=== PATIENT | female | born 1965 | race Caucasian/White ===

== ENCOUNTER 2019-03-13 19:47 | Observation (INO) ==
[2019-03-13 20:59] LABS: Basophils % (auto) 1.1 %; Eosinophils # (auto) 0.09 K/uL (0-0.5); Hematocrit (blood only) 35.9 % (37-47); Hemoglobin 12.5 g/dL (12.0-16.0); Immature Granulocytes # (auto) 0.02 K/uL (0.00-0.02); Immature Granulocytes % (auto) 0.2 %; Lymphocytes % (auto) 43.9 %; Mean Corpuscular Hemoglobin 31.3 pg (25-34); Mean Corpuscular Hgb Conc 34.8 g/dL (32-36); Mean Corpuscular Volume 89.8 fL (80-100); Mean Platelet Volume 11.5 fL (7.4-10.4); Monocytes # (auto) 0.69 K/uL (0.11-0.59); Monocytes % (auto) 7.6 %; Neutrophils # (auto) 4.22 K/uL (1.4-6.5); Neutrophils % (auto) 46.2 %; Platelet Count 208 K/uL (130-400); RDW Coefficient of Variation 12.8 % (11.5-14.5); RDW Standard Deviation 41.9 fL (36.4-46.3); White Blood Count 9.12 K/uL (4.8-10.8)
[2019-03-13 21:04] LABS: Prothrombin Time 10.5 Seconds (9.0-12.0)
[2019-03-13 21:07] LABS: Alanine Aminotransferase 27 U/L (12-78); Albumin Level 3.8 gm/dl (3.4-5.0); Aspartate Aminotransferase 23 U/L (15-37); BUN Creatinine Ratio 12.1 (10-20); Blood Urea Nitrogen 10 mg/dl (7-18); Calcium 8.6 mg/dl (8.5-10.1); Carbon Dioxide 27 mmol/L (21-32); Chloride 110 mmol/L (98-107); Creatinine Clr Calc Pharmacy 64.8 ml/min; Est GFR (African American) 93.3; Est GFR (Non-African American) 80.5; Glucose 112 mg/dl (70-99); Lipase 226 U/L (73-393); Magnesium 2.2 mg/dl (1.8-2.4); Potassium 3.7 mmol/L (3.5-5.1); Sodium 143 mmol/L (136-145)
[2019-03-13 21:18] LABS: Albumin Globulin Ratio 1.1 (0.9-2); Alkaline Phosphatase 69 U/L (45-117); Bilirubin,Total 0.7 mg/dl (0.2-1); Globulin 3.5 gm/dl (2.5-4.0); NT Pro B Type Natriuretic Pept 223 pg/ml (0-900); Phosphorus 2.3 mg/dl (2.5-4.9); Total Protein 7.3 gm/dl (6.4-8.2); Troponin I < 0.015 ng/ml (0-0.045)
[2019-03-13 22:00] LABS: Appearance Urine Clear (Clear); Bacteria Urine Automated Negative (Negative); Bilirubin Urine Negative (Negative); Blood Urine Negative (Negative); Cast Urine Automated 0 /lpf (0-5); Color Urine Yellow; Glucose Urine UA Negative (Negative); Ketones Urine Negative (Negative); Leukocyte Esterase Urine Trace (Negative); Nitrite Urine Negative (Negative); Protein Urine Negative (Negative); RBC Urine Automated 0-4 /hpf (0-4); Specific Gravity Urine 1.021 (1.000-1.030); Urobilinogen Urine Negative (Negative); pH Urine 8.5 (4.5-7.5)
--- NOTE | 2019-03-14 02:09 | History & Physical Report ---
Date of Service March 14, 2019 Assessment & Plan (1) Heart palpitations: 53yo F PMH afib, pacemaker placement, mitral/tricuspid valve repair, crohn's disease, who presented twice on 03/13 for symptomatic palpitations. Palpitations/chest tightness/JOHNSON -Will admit under observation for chest pain rule out -Patient decided to leave twice due to being frustrated about observation status and subsequent cost, but when trying to leave became symptomatic with hyperv entilation, and decided to stay -Trend troponin -Monitor on telemetry -Replace electrolytes prn -Consult cardiology, appreciate recs -Echo ordered -Ativan ordered prn, but patient to time of note has refused. -Continue ASA and crestor Crohn's -Well controlled at present -Receives remicade [id number] Dispo:tele, obs Code: Full DVTP: lovenox (2) Chest pain, exertional: (3) Breath, shortness: (4) Crohn's disease: History of Present Illness Chief Complaint: Palpitations, dizziness, chest tightness Primary Care Provider: NO PCP Damari is a pleasant 53yo F PMH Crohns, afib, pacemaker in situ, and mitral/tricuspid valve repair who presents to the ER for continued symptoms of palpitations, dizziness, chest tightness, and dyspnea on ambulation. Patient notes her symptoms started on 03/13 when she was walking into the football game. She presented to EMS at the [facility] where she was told her heart tracing indicated she was going in and out of atrial flutter. The patient notes because of her extensive history of arrhythmias, she would present to the ER. Workup was grossly negative at that time, with delta troponin negative and symptoms self re solving. She was noted at that time to have a mildly elevated D-dimer of [address] for PE was negative. EKG at that time revealed "Atrial-paced rhythm with frequent AV dual-paced complexes and with occasional sinus and non-sinus beats and Premature supraventricular complexes". She was offered inpatient observation and ativan at that time but declined both and stated she would follow up with her recreation therapy aide at [facility]. 8 hours after that visit, the patient returned with worsening symptoms of palpitations, dizziness, JOHNSON and new associated chest tightness on minimal exertion of going up 3 stairs, and so returned to the ER. She was noted to be breathing into a paper bag in triage. She again notes her symptoms resolved with rest. Labs grossly negative on this visit as well, including a negative troponin, normal TSH. She is a never smoker, exercises regularly. She will be admitted for chest pain rule out/arrhythmia. Regarding her cardiac history: Patient has a h/o afib and has had 3 ablations (2006, 2017, 2018--the latest for atrial tachy/SVT). 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 It is a Biotronik pacemaker with medtronic leads; she states that it was last interrogated in November 2018 and was told one lead was firing 12%, and the 2nd firing >40%. Patient also has a h/o mitral valve bovine repair and tricuspid stitch, which failed, and has resulted in a tricuspid annuloplasty and porcine mitral valve replacing bovine valve in 2017. She offers the following phone numbers: [employer] PM for interrogation: [phone] PM monitoring at [facility]: [phone] Dr. Mcfarland, her EP: [phone] Dr. Lucero, her cardiothoracic surgeon: [phone] Dr. Saleem, her recreation therapy aide: [phone] Allergies Allergy/AdvReac Type Severity Reaction Status Date / Time hydromorphone [From Dilaudid] Allergy Vomiting Unverified 03/13/19 20:32 morphine Allergy Vomiting Unverified 03/13/19 20:32 Home Medications Home Medications Medication Instructions Recorded Confirmed Type aspirin [Aspirin Low Dose] 81 mg PO DAILY 03/13/19 03/13/19 History rosuvastatin [Crestor] 5 mg PO HS 03/13/19 03/13/19 History Past Med/Surg History Medical History Chest pain (Acute) Heart palpitations (Acute) Afib Surgical History History of cardiac radiofrequency ablation History of open heart surgery Family History Other No pertinent family history Social History Preferred Language: Ukrainian Beliefs That Will Affect Care: Yarsani Yarsani Beliefs: Mosque Current Living Situation: Spouse Other Information That Helps Us Care for You: No Feels Safe at Home: Yes Safety Concerns: Feels Safe At This Time Smoking Status: Never smoker Hx Alcohol Use: No Hx Substance Use: No Review of Systems Review of Systems: All systems reviewed & are unremarkable except as noted in HPI & below Cardiovascular: + chest pain with activity, + dyspnea on exertion and + palpitations Neurologic: + dizziness (on exertion) Physical Exam Physical Exam: General: Well-appearing female, in no significant distress. HEENT: No scleral icterus, PERRLA, neck supple. Atraumatic. Cardiovascular: Regular rate and rhythm, no extra sounds. Pulmonary: Clear to auscultation bilaterally, normal work of breathing. Abdomen: Soft, nontender, nondistended, positive bowel sounds. Musculoskeletal: Atraumatic, no peripheral edema. Neurologic: Patient awake alert and oriented x 3, full strength in all 4 extremities. Skin: Warm, dry, no rashes Results & Data Vital Signs (Past 12 Hours) Vital Signs Temp Pulse Pulse Resp BP BP Pulse Ox 03/14/19 00:38 69 22 103/48 L 96 03/13/19 22:49 72 19 116/54 L 98 03/13/19 21:12 68 20 123/58 L 97 03/13/19 21:03 97 03/13/19 19:59 98.2 F 76 43 H 151/72 H 100 Laboratory Results 03/13/19 03/13/19 03/13/19 Range/Units 21:45 20:29 20:29 WBC (4.8-10.8) K/uL RBC (4.2-5.4) M/uL Hgb (12.0-16.0) g/dL Hct (37-47) % MCV (80-100) fL MCH (25-34) pg MCHC (32-36) g/dL RDW Std Deviation (36.4-46.3) fL RDW Coeff of Pan (11.5-14.5) % Plt Count (130-400) K/uL MPV (7.4-10.4) fL Immature Gran % (Auto) % Neut % (Auto) % Lymph % (Auto) % Grayson % (Auto) % Eos % (Auto) % Baso % (Auto) % Immature Gran # (Auto) (0.00-0.02) K/uL Neut # (Auto) (1.4-6.5) K/uL Lymph # (Auto) (1.2-3.4) K/uL Grayson # (Auto) (0.11-0.59) K/uL Eos # (Auto) (0-0.5) K/uL Baso # (Auto) (0-0.2) K/uL PT 10.5 (9.0-12.0) Seconds INR 1.0 (0.9-1.1) Sodium 143 (136-145) mmol/L Potassium 3.7 (3.5-5.1) mmol/L Chloride 110 H (98-107) mmol/L Carbon Dioxide 27 (21-32) mmol/L Anion Gap 6.0 (3-11) BUN 10 (7-18) mg/dl Creatinine 0.83 (0.6-1.2) mg/dl Est Cr Clr Drug Dosing 64.8 ml/min Est GFR ( Amer) 93.3 Est GFR (Non-Af Amer) 80.5 BUN/Creatinine Ratio 12.1 (10-20) Glucose 112 H (70-99) mg/dl Calcium 8.6 (8.5-10.1) mg/dl Phosphorus 2.3 L (2.5-4.9) mg/dl Magnesium 2.2 (1.8-2.4) mg/dl Total Bilirubin 0.7 (0.2-1) mg/dl AST 23 (15-37) U/L ALT 27 (12-78) U/L Alkaline Phosphatase 69 (45-117) U/L Troponin I < 0.015 (0-0.045) ng/ml NT-Pro-B Natriuret Pep 223 (0-900) pg/ml Total Protein 7.3 (6.4-8.2) gm/dl Albumin 3.8 (3.4-5.0) gm/dl Globulin 3.5 (2.5-4.0) gm/dl Albumin/Globulin Ratio 1.1 (0.9-2) Lipase 226 (73-393) U/L TSH 1.370 (0.300-4.500) uIu/ml Urine Color Yellow Urine Appearance Clear (Clear) Urine pH 8.5 H (4.5-7.5) Ur Specific Lynn 1.021 (1.000-1.030) Urine Protein Negative (Negative) Urine Glucose (UA) Negative (Negative) Urine Ketones Negative (Negative) Urine Blood Negative (Negative) Urine Nitrite Negative (Negative) Urine Bilirubin Negative (Negative) Urine Urobilinogen Negative (Negative) Ur Leukocyte Esterase Trace H (Negative) Urine WBC (Auto) 1-5 (0-5) /hpf Urine RBC (Auto) 0-4 (0-4) /hpf U Hyaline Cast (Auto) 0 (0-5) /lpf U Epithel Cells (Auto) 5-10 H (0-5) /lpf Urine Bacteria (Auto) Negative (Negative) 03/13/19 Range/Units 20:29 WBC 9.12 (4.8-10.8) K/uL RBC 4.00 L (4.2-5.4) M/uL Hgb 12.5 (12.0-16.0) g/dL Hct 35.9 L (37-47) % MCV 89.8 (80-100) fL MCH 31.3 (25-34) pg MCHC 34.8 (32-36) g/dL RDW Std Deviation 41.9 (36.4-46.3) fL RDW Coeff of Pan 12.8 (11.5-14.5) % Plt Count 208 (130-400) K/uL MPV 11.5 H (7.4-10.4) fL Immature Gran % (Auto) 0.2 % Neut % (Auto) 46.2 % Lymph % (Auto) 43.9 % Grayson % (Auto) 7.6 % Eos % (Auto) 1.0 % Baso % (Auto) 1.1 % Immature Gran # (Auto) 0.02 (0.00-0.02) K/uL Neut # (Auto) 4.22 (1.4-6.5) K/uL Lymph # (Auto) 4.00 H (1.2-3.4) K/uL Grayson # (Auto) 0.69 H (0.11-0.59) K/uL Eos # (Auto) 0.09 (0-0.5) K/uL Baso # (Auto) 0.10 (0-0.2) K/uL PT (9.0-12.0) Seconds INR (0.9-1.1) Sodium (136-145) mmol/L Potassium (3.5-5.1) mmol/L Chloride (98-107) mmol/L Carbon Dioxide (21-32) mmol/L Anion Gap (3-11) BUN (7-18) mg/dl Creatinine (0.6-1.2) mg/dl Est Cr Clr Drug Dosing ml/min Est GFR ( Amer) Est GFR (Non-Af Amer) BUN/Creatinine Ratio (10-20) Glucose (70-99) mg/dl Calcium (8.5-10.1) mg/dl Phosphorus (2.5-4.9) mg/dl Magnesium (1.8-2.4) mg/dl Total Bilirubin (0.2-1) mg/dl AST (15-37) U/L ALT (12-78) U/L Alkaline Phosphatase (45-117) U/L Troponin I (0-0.045) ng/ml NT-Pro-B Natriuret Pep (0-900) pg/ml Total Protein (6.4-8.2) gm/dl Albumin (3.4-5.0) gm/dl Globulin (2.5-4.0) gm/dl Albumin/Globulin Ratio (0.9-2) Lipase (73-393) U/L TSH (0.300-4.500) uIu/ml Urine Color Urine Appearance (Clear) Urine pH (4.5-7.5) Ur Specific Lynn (1.000-1.030) Urine Protein (Negative) Urine Glucose (UA) (Negative) Urine Ketones (Negative) Urine Blood (Negative) Urine Nitrite (Negative) Urine Bilirubin (Negative) Urine Urobilinogen (Negative) Ur Leukocyte Esterase (Negative) Urine WBC (Auto) (0-5) /hpf Urine RBC (Auto) (0-4) /hpf U Hyaline Cast (Auto) (0-5) /lpf U Epithel Cells (Auto) (0-5) /lpf Urine Bacteria (Auto) (Negative) Code Status & VTE Plan Code Status Full VTE Prophylaxis Plan VTE Prophylaxis will be ordered: Yes Supervising Physician Co-Signing Physician Notes Patient was seen and examined by me personally. I reviewed the chart, the orders and discussed the case in detail with Dr. Cathy Barry MD. I read this H&P and agree with its contents to entirety. PG Care Time/CCT Total # of Minutes Spent Total Time Spent with Patient: Total time spent is greater than 50% in coordination of care (as documented) at patient's floor/unit and/or counseling patient: Resident Activity Tracking Resident Involvement: Resident Care Provided Care Provided: Adult Hospital Medicine
[2019-03-14] MEDS ORDERED: ONDANSETRON INJ 2 MG/ML 2 ML VIAL IV PRN (03:01)
[2019-03-14] MEDS ORDERED: POTASSIUM PHOS 3 MMOL/1 ML INFUSION IV STA (03:01)
[2019-03-14] MEDS ORDERED: POLYETHYLENE (MIRALAX) 17 GM PACK PO PRN (03:01)
[2019-03-14] MEDS ORDERED: MAGNESIUM HYDROXIDE SUSP 30 ML UDC PO PRN (03:01)
[2019-03-14] MEDS ORDERED: NITROGLYCERIN SL 0.4 MG/TAB TAB SL PRN (03:01)
[2019-03-14] MEDS ORDERED: ALUMINUM/MAGNESIUM SUSP 30 ML UDC PO PRN (03:01)
[2019-03-14] MEDS ORDERED: ACETAMINOPHEN 325 MG TAB PO PRN (03:01)
[2019-03-14] MEDS ORDERED: LORazepam 0.25 MG/0.5 ML VIAL IV PRN (03:20)
--- NOTE | 2019-03-14 03:29 | Emergency Department Note ---
Entered by Krys Mojica acting as a scribe for Pankaj Devine MD History of Present Illness General Chief complaint: Cardiac Assessment Stated complaint: HEART PALPITATIONS Time Seen by Provider: 03/13/19 20:16 Source: patient History of Present Illness Onset (ago): minute(s) (prior to arrival) Location: chest Pain Consistency: + now resolved Quality: + other (shortness of breath) Associated symptoms: + chest pain and + other (heart palpitations, increased he art rate, shallow heart beats ) The patient is a 53 year old female who presents to the Emergency Room with complaints of shortness of breath beginning just prior to arrival when she was walking down the stairs in a restaurant. The patient reports heart palpitations, an increased heart rate, and shallow heart beats. She also notes some chest pain. She states the symptoms are now resolved, but have been coming and going in waves. The patient reports she was in the ER earlier today, approximately 8 hours ago, for a heart flutter and was given baby aspirin. She states that she was walking towards the stadium when she experienced shortness of breath for the first time today. Approximately 45 minutes later, she felt dizzy and thought she was going to blackout in the stadium bathroom. She notes the paramedics told her she had a heart flutter and advised her to come to the hospital despite her not wanting to come. The patient notes that she has felt fine the past couple of months. She states that she has been eating and drinking normally. She denies any alcohol use. The patient reports 3 open heart surgeries. She notes she had a mitral valve and bicuspid valve repair performed 14 years ago. 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 She notes the valve was replaced with a bovine valve one year after the initial surgery. She reports the bovine valve was then replaced with a porcine valve one year ago. The patient also states she has a history of three heart ablations. She notes she had a pacemaker placed six months ago due to her heart pausing after the third ablation was performed. She states she currently takes baby aspirin for her heart problems. The patient denies having any stents placed. The patient denies taking a water pill. She also denies a history of anxiety. Home Medications Home Medications Medication Instructions Recorded Confirmed Type aspirin [Aspirin Low Dose] 81 mg PO DAILY 03/13/19 03/13/19 History rosuvastatin [Crestor] 5 mg PO HS 03/13/19 03/13/19 History Allergies Allergy/AdvReac Type Severity Reaction Status Date / Time hydromorphone [From Dilaudid] Allergy Vomiting Unverified 03/13/19 20:32 morphine Allergy Vomiting Unverified 03/13/19 20:32 Past Med/Surg History Medical History Chest pain (Acute) Heart palpitations (Acute) Afib Surgical History History of cardiac radiofrequency ablation History of open heart surgery Family History Other No pertinent family history Social History Preferred Language: German Beliefs That Will Affect Care: Yarsani Yarsani Beliefs: Religion Current Living Situation: Spouse Other Information That Helps Us Care for You: No Feels Safe at Home: Yes Safety Concerns: Feels Safe At This Time Smoking Status: Never smoker Hx Alcohol Use: No Hx Substance Use: No Review of Systems See HPI for pertinent positives & negatives. and A total of 10 systems reviewed and were otherwise negative Physical Exam Vital Signs Vital Signs - 24 hr 03/13/19 19:59 03/13/19 21:03 03/13/19 21:12 Temperature 36.8 C Temperature Source Oral Sepsis Recent Fever Within 48 Hours No Sepsis New/Unexplained Change in Mental Status No Sepsis Action Taken by Nursing No Action Required Pulse Rate 76 Pulse Rate [Right Finger] 68 Pulse Rhythm [Right Finger] Regular Pulse Strength [Right Finger] Normal Respiratory Rate 43 H 20 Respiratory Effort / Characteristics Non-Labored Spontaneous Respiratory Depth Deep Normal Blood Pressure 151/72 H Blood Pressure [Right Arm] 123/58 L Blood Pressure Mean 98 Blood Pressure Mean [Right Arm] 79 Blood Pressure Position Sitting Pulse Oximetry 100 97 97 Oxygen Delivery Method Room Air Room Air Room Air 03/13/19 22:49 03/14/19 00:38 Temperature Temperature Source Sepsis Recent Fever Within 48 Hours Sepsis New/Unexplained Change in Mental Status Sepsis Action Taken by Nursing Pulse Rate Pulse Rate [Right Finger] 72 69 Pulse Rhythm [Right Finger] Pulse Strength [Right Finger] Respiratory Rate 19 22 Respiratory Effort / Characteristics Respiratory Depth Blood Pressure Blood Pressure [Right Arm] 116/54 L 103/48 L Blood Pressure Mean Blood Pressure Mean [Right Arm] 74 66 Blood Pressure Position Pulse Oximetry 98 96 Oxygen Delivery Method Room Air Room Air GENERAL: Awake, alert, anxious-appearing but otherwise well appearing, in no distress HENT: Normocephalic, atraumatic. Oropharynx with dry mucous membranes and otherwise unremarkable. EYES: Normal conjunctiva. Sclera non-icteric. EOMI. No nystamgus. PEARRL. NECK: Supple. No nuchal rigidity. FROM. No JVD. RESPIRATORY: CTAB. CARDIAC: Regular rate, normal rhythm. Extremities warm and well perfused. Pulses equal. ABDOMEN: Soft, non-distended. No tenderness to palpation. No rebound or guarding. No masses. RECTAL: Deferred. MUSCULOSKELETAL: Chest examination reveals no tenderness. The back is symmetrical on inspection without obvious abnormality. There is no CVA tenderness to palpation. No joint edema. LOWER EXTREMITIES: Calves are equal size bilaterally and non-tender. No edema. No discoloration. NEURO: Normal sensorium. No sensory or motor deficits noted. SKIN: No rash or jaundice noted. Course 2034: Past medical records reviewed. The patient was evaluated in room A12. A complete history and physical exam was performed. 0042: Upon reevaluation, I discussed findings and results with the patient. She verbalized agreement of the treatment plan. I spoke with Dr. Soto of the [facility] Hospitalist Service. The patient will be evaluated for further management and care. Administered Medications Potassium Phosphate 15 mmol/ (Sodium Chloride) 255 mls @ 100 mls/hr IV ONE ONE Stop: 03/14/19 06:02 Last Admin: 03/14/19 03:39 Dose: 100 mls/hr Documented by: [id number] Nitroglycerin (Nitro-Bid 2%) 1 inch EXT Q6H LIVIER Stop: 04/13/19 03:59 Last Admin: 03/14/19 03:39 Dose: 1 inch Documented by: [id number] Medical Decision Making Differential Diagnosis Differential diagnoses includes but is not limited to pneumonia, bronchitis, COPD/Asthma exacerbation, pneumothorax, pulmonary embolism, congestive heart failure, acute coronary syndrome Medical Records Attestation: I reviewed the patient's medical records. Home Medications Current Medication List: was personally reviewed by me Laboratory Data Attestation: I reviewed the patient's lab results. Result diagrams: 03/13/19 20:29 03/13/19 20:29 Lab Results 03/13/19 03/13/19 03/13/19 Range/Units 20:29 20:29 20:29 WBC 9.12 (4.8-10.8) K/uL RBC 4.00 L (4.2-5.4) M/uL Hgb 12.5 (12.0-16.0) g/dL Hct 35.9 L (37-47) % MCV 89.8 (80-100) fL MCH 31.3 (25-34) pg MCHC 34.8 (32-36) g/dL RDW Std Deviation 41.9 (36.4-46.3) fL RDW Coeff of Pan 12.8 (11.5-14.5) % Plt Count 208 (130-400) K/uL MPV 11.5 H (7.4-10.4) fL Immature Gran % (Auto) 0.2 % Neut % (Auto) 46.2 % Lymph % (Auto) 43.9 % Howard % (Auto) 7.6 % Eos % (Auto) 1.0 % Baso % (Auto) 1.1 % Immature Gran # (Auto) 0.02 (0.00-0.02) K/uL Neut # (Auto) 4.22 (1.4-6.5) K/uL Lymph # (Auto) 4.00 H (1.2-3.4) K/uL Howard # (Auto) 0.69 H (0.11-0.59) K/uL Eos # (Auto) 0.09 (0-0.5) K/uL Baso # (Auto) 0.10 (0-0.2) K/uL PT 10.5 (9.0-12.0) Seconds INR 1.0 (0.9-1.1) Sodium 143 (136-145) mmol/L Potassium 3.7 (3.5-5.1) mmol/L Chloride 110 H (98-107) mmol/L Carbon Dioxide 27 (21-32) mmol/L Anion Gap 6.0 (3-11) BUN 10 (7-18) mg/dl Creatinine 0.83 (0.6-1.2) mg/dl Est Cr Clr Drug Dosing 64.8 ml/min Est GFR ( Amer) 93.3 Est GFR (Non-Af Amer) 80.5 BUN/Creatinine Ratio 12.1 (10-20) Glucose 112 H (70-99) mg/dl Calcium 8.6 (8.5-10.1) mg/dl Phosphorus 2.3 L (2.5-4.9) mg/dl Magnesium 2.2 (1.8-2.4) mg/dl Total Bilirubin 0.7 (0.2-1) mg/dl AST 23 (15-37) U/L ALT 27 (12-78) U/L Alkaline Phosphatase 69 (45-117) U/L Troponin I < 0.015 (0-0.045) ng/ml NT-Pro-B Natriuret Pep 223 (0-900) pg/ml Total Protein 7.3 (6.4-8.2) gm/dl Albumin 3.8 (3.4-5.0) gm/dl Globulin 3.5 (2.5-4.0) gm/dl Albumin/Globulin Ratio 1.1 (0.9-2) Lipase 226 (73-393) U/L TSH 1.370 (0.300-4.500) uIu/ml Urine Color Urine Appearance (Clear) Urine pH (4.5-7.5) Ur Specific [place] (1.000-1.030) Urine Protein (Negative) Urine Glucose (UA) (Negative) Urine Ketones (Negative) Urine Blood (Negative) Urine Nitrite (Negative) Urine Bilirubin (Negative) Urine Urobilinogen (Negative) Ur Leukocyte Esterase (Negative) Urine WBC (Auto) (0-5) /hpf Urine RBC (Auto) (0-4) /hpf U Hyaline Cast (Auto) (0-5) /lpf U Epithel Cells (Auto) (0-5) /lpf Urine Bacteria (Auto) (Negative) 03/13/19 Range/Units 21:45 WBC (4.8-10.8) K/uL RBC (4.2-5.4) M/uL Hgb (12.0-16.0) g/dL Hct (37-47) % MCV (80-100) fL MCH (25-34) pg MCHC (32-36) g/dL RDW Std Deviation (36.4-46.3) fL RDW Coeff of Pan (11.5-14.5) % Plt Count (130-400) K/uL MPV (7.4-10.4) fL Immature Gran % (Auto) % Neut % (Auto) % Lymph % (Auto) % Howard % (Auto) % Eos % (Auto) % Baso % (Auto) % Immature Gran # (Auto) (0.00-0.02) K/uL Neut # (Auto) (1.4-6.5) K/uL Lymph # (Auto) (1.2-3.4) K/uL Howard # (Auto) (0.11-0.59) K/uL Eos # (Auto) (0-0.5) K/uL Baso # (Auto) (0-0.2) K/uL PT (9.0-12.0) Seconds INR (0.9-1.1) Sodium (136-145) mmol/L Potassium (3.5-5.1) mmol/L Chloride (98-107) mmol/L Carbon Dioxide (21-32) mmol/L Anion Gap (3-11) BUN (7-18) mg/dl Creatinine (0.6-1.2) mg/dl Est Cr Clr Drug Dosing ml/min Est GFR ( Amer) Est GFR (Non-Af Amer) BUN/Creatinine Ratio (10-20) Glucose (70-99) mg/dl Calcium (8.5-10.1) mg/dl Phosphorus (2.5-4.9) mg/dl Magnesium (1.8-2.4) mg/dl Total Bilirubin (0.2-1) mg/dl AST (15-37) U/L ALT (12-78) U/L Alkaline Phosphatase (45-117) U/L Troponin I (0-0.045) ng/ml NT-Pro-B Natriuret Pep (0-900) pg/ml Total Protein (6.4-8.2) gm/dl Albumin (3.4-5.0) gm/dl Globulin (2.5-4.0) gm/dl Albumin/Globulin Ratio (0.9-2) Lipase (73-393) U/L TSH (0.300-4.500) uIu/ml Urine Color Yellow Urine Appearance Clear (Clear) Urine pH 8.5 H (4.5-7.5) Ur Specific [place] 1.021 (1.000-1.030) Urine Protein Negative (Negative) Urine Glucose (UA) Negative (Negative) Urine Ketones Negative (Negative) Urine Blood Negative (Negative) Urine Nitrite Negative (Negative) Urine Bilirubin Negative (Negative) Urine Urobilinogen Negative (Negative) Ur Leukocyte Esterase Trace H (Negative) Urine WBC (Auto) 1-5 (0-5) /hpf Urine RBC (Auto) 0-4 (0-4) /hpf U Hyaline Cast (Auto) 0 (0-5) /lpf U Epithel Cells (Auto) 5-10 H (0-5) /lpf Urine Bacteria (Auto) Negative (Negative) Imaging Data Radiologist's Impression: Radiology results as stated below per my review and th e radiologist's interpretation: Chest x-ray: Comparison 03/13/2019 at 12:46 PM. Findings: Left subclavian pacer leads to the right atrium and right ventricle apex. Median sternotomy wires and mediastinal surgical clips, coronary artery bypass graft rings noted. Vertex silhouette mildly enlarged as on prior exam. No focal opacity. No large effusion or pneumothorax. Osseous structures normal. Upper abdomen normal. Impression: 1. Cardiomegaly. No other convincing evidence of acute cardiopulmonary disease. ECG Data Attestation: I personally reviewed and interpreted this ECG as follows: Indication: SOB/dyspnea Rate (beats per minute): 77 Findings: + other (LVH with repolarization abnormalities) and + PAC; no ST depression, no ST elevation and no acute ischemic change Comparison ECG Date: from (1230pm today) Change: the following changes noted (paced rhythm no longer shown) Blood Pressure Blood Pressure Findings: Low blood pressure Blood Pressure Disposition: further management by hospitalist [facility] Narrative The patient is a pleasant 53-year-old woman with a past medical history of mitral valve repair and replacement with bioprosthetic valve, history of heart block status post permanent pacemaker who presents emergency department with repeat episode of exertional chest pain and shortness of breath with difficulty breathing in the setting of being seen in emergency department earlier today with reassuring work-up including negative troponin as well as a an unremarkable CTA of the chest. On arrival the patient is anxious appearing but no acute distress, afebrile with stable vital signs. Of note upon presentation to triage the patient was hyperventilating and was given a paper bag with subsequent resolution of her symptoms. The patient apparently was ordered for Ativan on a prior ED visit however she refused and ended up improving without intervention. However she reports her symptoms occurred abruptly today with exertion. She denies any prior history of anxiety or panic attacks. EKG demonstrates sinus rhythm without overt acute ischemia. Chest x-ray unremarkable for acute process. WBC, hemoglobin, platelets within normal limits. Chemistry without acidosis. Troponin negative. Electrolytes and LFTs unremarkable. BNP within normal limits. UA without evidence of infection. We did attempt repeatedly to contact [employer], the campaign consultant of the patient's pacemaker however we were unsuccessful over the course of 3+ hours. Thus given inability to exclude concerning arrhythmias or dysfunction of the patient's device given her symptoms reasonable to admit the patient for further cardiac evaluation. Case was discussed with Dr. Soto, [facility] hospitalist will evaluate the patient for admission. Impression & Plan Chest pain, exertional, Breath, shortness Discharge Plan Visit Data *Final* Discharge Date/Time: 03/14/19 02:11 Chief Complaint: Cardiac Assessment Stated Complaint: HEART PALPITATIONS ED Provider: Pankaj Devine Discharge Problem: Chest pain, exertional, Breath, shortness Patient Disposition: Admitted As Inpatient Discharge Instructions Interventions: ED Discharge Assessment Last Done: 03/14/19 02:11 The scribe's documentation has been prepared under my direction and personally reviewed by me in its entirety. I confirm that the note above accurately reflects all work, treatment, procedures, and medical decision making performed by me.
[2019-03-14] MEDS ORDERED: POTASSIUM PHOSPHATE 15 MMOL in SODIUM CHLORIDE 0.9% 250 ML IV ONE (03:30)
[2019-03-14] MEDS ORDERED: NITROGLYCERIN 2% OINTMENT 30GM TUBE EXT SCH (04:00)
[2019-03-14] MEDS ORDERED: ENOXAPARIN INJ 40 MG/0.4 ML SYR SQ SCH (06:00)
[2019-03-14 06:37] LABS: BUN Creatinine Ratio 24.2 (10-20); Blood Urea Nitrogen 17 mg/dl (7-18); Calcium 8.2 mg/dl (8.5-10.1); Carbon Dioxide 27 mmol/L (21-32); Chloride 110 mmol/L (98-107); Est GFR (African American) 115.2; Est GFR (Non-African American) 99.4; Glucose 93 mg/dl (70-99); Magnesium 2.2 mg/dl (1.8-2.4); Potassium 3.8 mmol/L (3.5-5.1); Sodium 143 mmol/L (136-145)
[2019-03-14 07:03] LABS: Phosphorus 4.8 mg/dl (2.5-4.9); Troponin I < 0.015 ng/ml (0-0.045)
[2019-03-14] MEDS ORDERED: ASPIRIN 81 MG ECTAB PO SCH (09:00)
--- NOTE | 2019-03-14 11:56 | Cardiology Consultation ---
Date of Consultation March 14, 2019 Assessment & Plan (1) Chest pain, exertional: I do not believe her chest pain was related to cardiac ischemia. She does not have a history of coronary disease and has had several evaluations previously in this regard. On the character of her symptom could suggest ischemia, the extended duration without elevation in her biomarkers also speaks against ischemia. She is accustomed to routine exercise without symptoms of chest discomfort. I think the most likely explanation of this symptom was simply her palpitations and likely rapid atrial rates. (2) Heart palpitations: Patient did have a picture of EKGs obtained by EMS. He is reported to be atrial fibrillation but were not. She has not had any sustained atrial arrhythmias on telemetry monitoring with the exception of a persistent ectopic atrial pacemaker. I did interrogate her device. No specific arrhythmia was recorded yesterday. She has had some episodes of high atrial rates recorded through her device. EGMs were available for 5 episodes which occurred over the past year. The most recent episode was in January of this year. Additional data from her device suggests that at the time of her symptoms she had a high atrial rate with some degree of AV block. The histogram available suggests that there was a relatively gradual onset of a high atrial rate and a slightly slower ventricular rate. This high atrial rate gradually resolved over the course of approximately 2 hours. She had a similar episode later in the evening the correlated well with her symptoms around dinnertime. The overall atrial rate in the histograms are not consistent with either atrial fibrillation or atrial flutter. I suspect the rhythm she in countered was some form of ectopic atrial tachycardia. She does have a history of an atrial tachycardia and appears to have undergone an ablation for an SVT and a tach several months ago. She did report a remote history of ventricular tachycardia. She states this was discovered at the time 1 of her ablation. There were no recent electrograms or histograms consistent with a primary ventricular arrhythmia. After our interview the patient was ambulatory around the negrete without symptoms or arrhythmia. I do believe it is safe for her to return home and follow up with her primary sports book board attendant. The addition of beta-blockade to her medical regimen may be a reasonable intervention. However, she has close follow-up with a team of cardiologists at home and I think we can defer management to them at this point. (3) Valvular heart disease: She has a history of mitral valve disease having undergone 3 procedures in that regard. It is unclear what prompted her initial surgery, perhaps mitral valve prolapse. It seems that she underwent an attempted repair but ran into significant complications subsequent to the surgery. Eventually she required implantation of a bioprosthetic mitral valve and more recently a replacement of her original bioprosthetic mitral valve. Echocardiogram performed today revealed normal function of her bioprosthetic valve. History of Present Illness Reason for Consultation: Palpitations, chest pain Requesting Physician: Elis Attending Physician: Migue Gillis History of Present Illness The patient is a 53-year-old woman with an extensive cardiac history to include multiple ablations for atrial arrhythmia as well as surgeries for valvular heart disease. She was in town visiting for the football game when she began to experience symptoms of breathing difficulty and palpitations. Patient states that she was walking approximately a mile and half towards the stadium yesterday morning when she began to have significant dyspnea. She also had a sense of dizziness and presyncope. She sought medical attention locally and the EMS facility and was felt to have an atrial arrhythmia. She was told by the personnel there that she was going in and out of atrial flutter. Due to the persistent nature of her symptoms she was transported to our hospital. Initial evaluation did not reveal any significant atrial arrhythmia. The patient's symptoms gradually resolved in a preliminary evaluation did not reveal any concerning findings. The patient elected to leave at that time. Later around dinner she experienced another similar episode. This occurred when she was walking outside from the restaurant. Additionally, she had some sense of chest pressure at that time. She was transported to our facility again. A CT scan of the chest was performed in order to exclude pulmonary embolus. She was then admitted for observation. Since arriving in our facility she has not had any recurrence of the symptoms. She does recall similar symptoms in the past, but fairly remotely. She does not recall having symptoms of chest discomfort previously. The chest discomfort noted last evening was not described as a pain. He was relatively mild in severity but did last for approximately 20-30 minutes by her report. It is unclear will resolve the symptoms. She reports being an active person overall was accustomed to routine exercises such as biking and walking. She has not experienced exertional symptoms with that type of activity. Allergies Allergy/AdvReac Type Severity Reaction Status Date / Time hydromorphone [From Dilaudid] Allergy Vomiting Unverified 03/13/19 20:32 morphine Allergy Vomiting Unverified 03/13/19 20:32 Home Medications Home Medications Medication Instructions Recorded Confirmed Type aspirin [Aspirin Low Dose] 81 mg PO DAILY 03/13/19 03/13/19 History rosuvastatin [Crestor] 5 mg PO HS 03/13/19 03/13/19 History Patient History Medical History Chest pain (Acute) Heart palpitations (Acute) Afib Surgical History History of cardiac radiofrequency ablation History of open heart surgery Family History Other No pertinent family history Social History Preferred Language: Vietnamese Beliefs That Will Affect Care: Jewish Jewish Beliefs: Evangelical Current Living Situation: Spouse Other Information That Helps Us Care for You: No Feels Safe at Home: Yes Safety Concerns: Feels Safe At This Time Smoking Status: Never smoker Hx Alcohol Use: No Hx Substance Use: No Review of Systems Review of Systems: All systems reviewed & are unremarkable except as noted in HPI & below She denies any recent illness. No recent fevers or chills. Physical Exam Physical Exam: She is alert and oriented x3. Mood affect appear normal. She answered all questions appropriately. HEENT: Sclerae are anicteric. Pupils are equal and reactive to light and accommodation. Extraocular movements were intact. Neuro: Cranial nerves intact Neck: Examination of the submandibular region did not reveal any significant lymphadenopathy. Carotids are palpable bilaterally and free of bruits on auscultation. There was no evidence of jugular venous distention. The thyroid was not enlarged. Lungs: Lungs are clear to auscultation bilaterally. There are no rales wheezes or rhonchi. She has normal respiratory effort without use of accessory muscles. There is normal pulmonary excursion. Cardiac: The rhythm was regular with occasional ectopy. S1 and S2 were normal. There are no murmurs on examination. The PMI was not markedly displaced on palpation. Chest: Well-healed sternotomy. Implantable pacemaker left upper pectoral area Abdomen: The abdomen was soft and nontender. Extremities: Patient has bilateral radial pulses that are equal in intensity. There is no evidence cyanosis or clubbing. There was no evidence of significant peripheral edema bilaterally. Skin: There are no rashes noted on examination today. Results & Data Vital Signs (Past 12 Hours) Vital Signs Temp Pulse Pulse Resp BP Pulse Ox 03/14/19 08:59 60 03/14/19 07:30 36.6 C 60 16 107/70 96 03/14/19 04:32 68 03/14/19 03:01 36.3 C L 65 28 H 129/73 100 03/14/19 00:38 69 22 103/48 L 96 Laboratory Results Abnormal Lab Results 03/13/19 03/13/19 03/13/19 20:29 20:29 20:29 WBC 9.12 RBC 4.00 L Hgb 12.5 Hct 35.9 L MCV 89.8 MCH 31.3 MCHC 34.8 RDW Std Deviation 41.9 RDW Coeff of Pan 12.8 Plt Count 208 MPV 11.5 H Immature Gran % (Auto) 0.2 Neut % (Auto) 46.2 Lymph % (Auto) 43.9 Brooke % (Auto) 7.6 Eos % (Auto) 1.0 Baso % (Auto) 1.1 Immature Gran # (Auto) 0.02 Neut # (Auto) 4.22 Lymph # (Auto) 4.00 H Brooke # (Auto) 0.69 H Eos # (Auto) 0.09 Baso # (Auto) 0.10 PT 10.5 INR 1.0 Sodium 143 Potassium 3.7 Chloride 110 H Carbon Dioxide 27 Anion Gap 6.0 BUN 10 Creatinine 0.83 Est Cr Clr Drug Dosing 64.8 Est GFR ( Amer) 93.3 Est GFR (Non-Af Amer) 80.5 BUN/Creatinine Ratio 12.1 Glucose 112 H Calcium 8.6 Phosphorus 2.3 L Magnesium 2.2 Total Bilirubin 0.7 AST 23 ALT 27 Alkaline Phosphatase 69 Troponin I < 0.015 NT-Pro-B Natriuret Pep 223 Total Protein 7.3 Albumin 3.8 Globulin 3.5 Albumin/Globulin Ratio 1.1 Lipase 226 TSH 1.370 Urine Color Urine Appearance Urine pH Ur Specific [place] Urine Protein Urine Glucose (UA) Urine Ketones Urine Blood Urine Nitrite Urine Bilirubin Urine Urobilinogen Ur Leukocyte Esterase Urine WBC (Auto) Urine RBC (Auto) U Hyaline Cast (Auto) U Epithel Cells (Auto) Urine Bacteria (Auto) 03/13/19 03/14/19 03/14/19 21:45 05:37 10:24 WBC RBC Hgb Hct MCV MCH MCHC RDW Std Deviation RDW Coeff of Pan Plt Count MPV Immature Gran % (Auto) Neut % (Auto) Lymph % (Auto) Brooke % (Auto) Eos % (Auto) Baso % (Auto) Immature Gran # (Auto) Neut # (Auto) Lymph # (Auto) Brooke # (Auto) Eos # (Auto) Baso # (Auto) PT INR Sodium 143 Potassium 3.8 Chloride 110 H Carbon Dioxide 27 Anion Gap 6.0 BUN 17 D Creatinine 0.69 Est Cr Clr Drug Dosing 78.0 Est GFR ( Amer) 115.2 Est GFR (Non-Af Amer) 99.4 BUN/Creatinine Ratio 24.2 H Glucose 93 Calcium 8.2 L Phosphorus 4.8 D Magnesium 2.2 Total Bilirubin AST ALT Alkaline Phosphatase Troponin I < 0.015 < 0.015 NT-Pro-B Natriuret Pep Total Protein Albumin Globulin Albumin/Globulin Ratio Lipase TSH Urine Color Yellow Urine Appearance Clear Urine pH 8.5 H Ur Specific [place] 1.021 Urine Protein Negative Urine Glucose (UA) Negative Urine Ketones Negative Urine Blood Negative Urine Nitrite Negative Urine Bilirubin Negative Urine Urobilinogen Negative Ur Leukocyte Esterase Trace H Urine WBC (Auto) 1-5 Urine RBC (Auto) 0-4 U Hyaline Cast (Auto) 0 U Epithel Cells (Auto) 5-10 H Urine Bacteria (Auto) Negative Diagnostic Findings Chest x-ray was obtained at the time of admission did not reveal any acute cardiopulmonary findings CT pulmonary angiogram did not reveal any evidence of pulmonary embolus I performed a device interrogation in attempt to evaluate any recorded arrhythmias, histograms in device function. Echocardiogram performed today revealed preserved LV systolic function and normally functioning bioprosthetic valve without significant mitral stenosis. No significant mitral regurgitation. ECG Additional Comments: EKG and telemetry revealed primarily ectopic atrial rhythm with occasional sinus beats and prolonged KS interval. There was occasional atrial and very rare ventricular pacing. PG Care Time/CCT Total # of Minutes Spent Total Time Spent with Patient: Total time spent is greater than 50% in coordination of care (as documented) at patient's floor/unit and/or counseling patient:
[2019-03-14] MEDS ORDERED: ROSUVASTATIN CALCIUM 5 MG TAB PO SCH (21:00)
--- NOTE | 2019-03-15 13:31 | XRay Report ---
TEMPORARY CLINICAL HISTORY: 53 years-old Female presenting with chest pain. TECHNIQUE: Portable upright AP view of the chest was obtained. COMPARISON: 03/13/2019 at 12:46 P.M.. FINDINGS: Left subclavian pacer leads to the right atrium and right ventricular apex. Median sternotomy wires a nd mediastinal surgical clips. Coronary artery bypass graft rings noted. Vertex silhouette mildly enl arged as on prior exam. No focal opacity. No large effusion or pneumothorax. Osseous structures urmila l. Upper abdomen normal. IMPRESSION: 1. Cardiomegaly. No other convincing evidence of acute cardiopulmonary disease. Electronically signed by: Wenceslao Ambrose M.D. 03/13/2019 9:28 PM
--- NOTE | 2019-03-22 05:51 | Discharge Summary ---
Date of Service March 14, 2019 Admission HPI Per Admitting Provider Mrs Loya is a pleasant 53yo female with PMH significant for Crohn's disease, afib, pacemaker in situ, and mitral/tricuspid valve repair who presents to the ER for continued symptoms of palpitations, dizziness, chest tightness, and dyspnea on ambulation. Patient notes her symptoms started on 03/13 when she was walking into the [employer] football game. She presented to EMS at the [facility] where she was told her heart tracing indicated she was going in and out of atrial flutter. The patient notes because of her extensive history of arrhythmias she presented to the [facility] ER. Workup was grossly negative at that time, with delta troponin negative and symptoms self resolving. She was noted at that time to have a mildly elevated D-dimer of [address] for PE was negative. EKG at that time revealed "Atrial-paced rhythm with frequent AV dual- paced complexes and with occasional sinus and non-sinus beats and Premature supraventricular complexes". She was offered inpatient observation and ativan at that time but declined both and stated she would follow up with her water treatment operator at [facility]. 8 hours after that visit, the patient returned with worsening symptoms of palpitations, dizziness, JOHNSON and new associated chest tightness on minimal exertion of going up 3 stairs, and so returned to the ER. She was noted to be breathing into a paper bag in triage. She again notes her symptoms resolved with rest. Labs grossly negative on this visit as well, including a negative troponin, normal TSH. She is a never smoker, exercises regularly. She will be admitted for chest pain rule out/arrhythmia. Regarding her cardiac history: Patient has a h/o afib and has had 3 ablations (2006, 2017, 2018--the latest for atrial tachy/SVT). She notes during one of these procedures her phrenic nerve was affected and she had resultant pauses, leading to pacemaker placement for which she follows with [facility]. It is a BiotroniNext Jump pacemaker with medtronic leads; she states that it was last i nterrogated in November 2018 and was told one lead was firing 12%, and the 2nd firing >40%. Patient also has a h/o mitral valve bovine repair and tricuspid stitch, which failed, and has resulted in a tricuspid annuloplasty and porcine mitral valve replacing bovine valve in 2017. She offers the following phone numbers: [place]in PM for interrogation: [phone] PM monitoring at [facility]: [phone] Dr. Mcfarland, her EP: [phone] Dr. Lucero, her cardiothoracic surgeon: [phone] Dr. Saleem, her water treatment operator: [phone] Principal Diagnosis probable atrial tachycardia Discharge Exam Constitutional + thin; no acute distress ENMT external ear and nose normal, oropharynx normal Respiratory normal respiratory effort, lungs clear to auscultation Cardiovascular Rate/Rhythm: regular rate and regular rhythm Heart Sounds: normal S1 and normal S2; no murmur Vessels: posterior tibial pulses present and dorsalis pedis pulses present; no JVD Extremities: no edema extra beats auscultated Gastrointestinal (Abdomen) normal bowel sounds, soft, nontender, no hepatosplenomegaly Psychiatric A+Ox3, euthymic affect Discharge Data Allergies Allergy/AdvReac Type Severity Reaction Status Date / Time hydromorphone [From Dilaudid] Allergy Vomiting Unverified 03/13/19 20:32 morphine Allergy Vomiting Unverified 03/13/19 20:32 Consultations [facility] - Misael Mina MD Procedures Performed 1. CTA chest: IMPRESSION: 1. No evidence of pulmonary embolus. No acute intrathoracic pathology. 2. Postsurgical changes of CABG and mitral annular repair. 3. Mild cardiomegaly. 2. echocardiogram: * EF 55-60% * normal functioning bioprosthetic mitral valve * normal diastolic function * normal LV wall motion 3. pacemaker interrogation Hospital Course (1) Heart palpitations: The patient underwent an extensive work-up for her presenting symptoms. Troponins x 5 over the course of a 24-hour period were all negative. CTA chest was negative for PE or other acute pathology. TSH, electrolytes, and other labs were normal. Echocardiogram was normal with preserved EF and normal functioning bioprosthetic mitral valve. She was seen in consult by Dr Misael Mina of [facility] Card[facility]/electrophysiology. He interrogated her pacemaker and reviewed all tele strips from the ER as well as from her inpatient monitoring. He saw no evidence of any a.fib or a.flutter. He felt that the predominant rhythm which was giving her palpitations was that of probable atrial tachycardia. She was counseled regarding this rhythm. There were occasional runs of suspected 2nd degree AV block but no high-degree AV block. All studies including her CTA chest and echocardiogram were burned on a CD ROM for her to bring to her cardiologists back home in the [facility] area. Following admission all presenting symptoms resolved and did not recur. Vitals remained stable. She was able to ambulate without any limiting symptoms. No new medications were initiated for the suspected atrial tachycardia. She was asked to follow-up with her primary water treatment operator upon return home to [facility]. (2) Chest pain, exertional: (3) Breath, shortness: (4) Crohn's disease: Total Time Total Time Spent Total Time Spent (In Minutes): 40 Total Time Includes: Examination of the Patient, Discharge Planning, Medication Reconciliation and Communication With Other Providers Discharge Plan Discharge Items Patient Disposition: Home - Self-Care Reason For Visit: PALPITATIONS Discharge Diagnosis: palpitations - resolved. pacemaker interrogated (checked) and no a.fib or a.flutter found. the palpitations were likely due to atrial tachycardia or similar rhythm. Goals: try to determine cause of palpitations Activity: Resume your previous activity Non-emergency contact: Primary Care Provider and Traffic Sign Supervisor Call non-emergency contact if: you have any medication questions and your symptoms worsen Diet: Heart Healthy and Lactose Intolerant Abiel Attending Provider Instructions: You were seen at [facility] for palpitations. Blood work showed no evidence of heart attack. Your pacemaker device was interrogated and your telemetry monitoring was reviewed in detail. Our continuous improvement engineer/senior talent acquisition specialist looked at all of the information and it does not appear that you had atrial fibrillation or atrial flutter. It was suspected that you may have had atrial tachycardia. This type of rhythm does not require use of blood thinning medication. Our water treatment operator spoke with your water treatment operator back home; at this time no changes or additions in medication are recommended. Please see Dr High, your water treatment operator, within the next week. Be sure to bring your CDs with echo, etc to that appointment. Your echocardiogram showed normal heart function and normal valve function of the mitral and tricuspid valves. Your CAT scan of the lungs did NOT show blood clots (pulmonary emboli), pneumonia, etc. Return to any hospital if: * you are having chest pain * you are having shortness of breath * you are having severe palpitations/rapid heart beating * any other concerns Pending Studies at Discharge: No Stand-Alone Forms: My [facility] Medications and DC Order Prescriptions: Continued aspirin [Aspirin Low Dose] 81 mg Tablet,Delayed Release (Dr/Ec) 81 mg PO DAILY RF: 0 rosuvastatin [Crestor] 5 mg Tablet 5 mg PO HS RF: 0 Discharge Orders: Discharge Order (Routine); Ordered 03/14/19 Ordered By: Migue Gillis Admission Data Admit Date/Time: 03/14/19 01:48 Attending Provider: Migue Gillis Admit Provider: Cathy Barry Primary Care Provider: Jesus Alberto Richard Other Providers: Peter Soto ; Julio Mina Other Interventions: Discharge Summary Assessment (RN) Last Done: 03/14/19 14:28 DC Date/Time DO NOT enter until pt leaves facility: 03/14/19 14:47
== END 2019-03-14 14:47 | disposition home or self-care (01) ==
LOC: ED 19:47 → 2S 19:47 → SUATTDRO 03-14 01:48 → 2S 03-14 02:11